=== PATIENT | male | born 1980 | race Caucasian/White ===

== ENCOUNTER 2025-03-04 13:59 | Emergency (ER) | payer SELFPAY ==
[2025-03-04 14:32] VITALS: BP 138/81; PULSE 73; RESP 18; TEMP 36.6; O2SAT 100
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
== END 2025-03-04 15:26 | disposition left against medical advice (07) ==
DX: L03.012 Cellulitis of left finger (principal)
CPT/HCPCS: 99211; 99213; G0463